=== PATIENT | male | born 1965 | race Caucasian/White ===

== ENCOUNTER 2023-01-22 07:24 | Outpatient (CLI) | payer BC, OTHER, SELFPAY ==
--- NOTE | ~2023-01-22 | CT_ITS ---
EXAMINATION:CT lung screening DATE: 01/22/2023 07:43 INDICATION: Personal history of tobacco dependence. Smoker who quit 4 years ago with 40 pack year his tory. TECHNIQUE: Computed tomography (CT) of the chest was performed without intravenous contrast. Automate d exposure control and iterative reconstruction technique were employed. The dose-length product (DLP ) was 172.89 mGy-cm. COMPARISON: None. FINDINGS: There is mild emphysema. There is mild atelectasis of left hemidiaphragm. There is mild sca rring at left lung base laterally. A calcified left lung nodule is consistent with old granulomatous disease. No pleural effusion. The heart size is normal. There are coronary artery calcifications. No pericardial effusion. There is an old fracture of left eighth rib. There is mild thoracic spondylosis . IMPRESSION: 1. Lung-RADS category 2: Benign appearance or behavior. Continue annual screening with noncontrast lo w-dose chest CT in 12 months. Reviewed, dictated and finalized at location A. IMPRESSION: 1. Lung-RADS category 2: Benign appearance or behavior. Continue annual screeni ng with noncontrast low-dose chest CT in 12 months.
== END 2023-01-22 07:25 | disposition home or self-care (01) ==
LOC: CHSIMG 07:29
PROVIDERS: PCP Registered Nurse; Visit Provider Registered Nurse
DX: Z12.2 Encounter for screening for malignant neoplasm of respiratory organs (principal); Z87.891 Personal history of nicotine dependence
CPT/HCPCS: 71271